=== PATIENT | female | born 1960 | race Two or more races ===

== ENCOUNTER 2018-08-13 17:05 | Emergency (ER) | payer MEDICAID ==
[~2018-08-13] VITALS: Ht 167.6 cm; Wt 90.7 kg
[2018-08-13 17:21] VITALS: BP 132/78
[2018-08-13] MEDS ORDERED: KETOROLAC TROMETHAMINE INJ 30 MG/ML VIAL ONE (17:51)
[2018-08-13] MEDS ORDERED: KETOROLAC TROMETHAMINE INJ 60 MG/2 ML VIAL IM ONE (18:00)
[2018-08-13] MEDS ORDERED: CARISOPRODOL 350 MG TABLET PO ONE (18:30)
[2018-08-13] MEDS ORDERED: HYDROCODONE/APAP 5/325MG 1 EACH TABLET PO ONE (18:30)
[2018-08-13] MEDS ORDERED: CARISOPRODOL 350 MG TABLET ONE (18:39)
[2018-08-13] MEDS ORDERED: HYDROCODONE/APAP 5/325MG 1 EACH TABLET ONE (18:39)
[2018-08-13] MEDS ORDERED: ONDANSETRON 4 MG TAB.RAPDIS SL ONE (19:00)
[2018-08-13] MEDS ORDERED: HYDROMORPHONE INJ 0.5 MG/0.5 ML SYRINGE IM ONE (19:00)
[2018-08-13] MEDS ORDERED: ONDANSETRON 4 MG TAB.RAPDIS ONE (19:08)
[2018-08-13] MEDS ORDERED: HYDROMORPHONE 1 MG/1 ML DISP.SYRIN ONE (19:08)
== END 2018-08-13 19:47 | disposition home or self-care (01) ==
LOC: ER 17:06
DX: M51.26 Other intervertebral disc displacement, lumbar region (principal); M54.41 Lumbago with sciatica, right side; K21.9 Gastro-esophageal reflux disease without esophagitis; Z98.890 Other specified postprocedural states
CPT/HCPCS: 72131; 96372; 99284; J1885; J1170; Q0162

== ENCOUNTER 2020-09-07 01:16 | Emergency (ER) | payer MEDICAID ==
[~2020-09-07] VITALS: Ht 167.6 cm; Wt 90.7 kg
--- NOTE | 2020-09-07 01:35 | NUR ---
[id number] FROM HOME C/O RIGHT KNEE RADIATING TO FOOT. PATIENT A/OX3, STABLE ON ROOM AIR, V/S WNL, RR IS EVEN AND UNLABORED. PATIENT ON MONITOR. WILL CONTINUE TO MONITOR.
[2020-09-07] MEDS ORDERED: KETOROLAC TROMETHAMINE INJ 60 MG/2 ML VIAL IM ONE (02:26)
[2020-09-07] MEDS: KETOROLAC TROMETHAMINE INJ 60 MG/2 ML VIAL IM ONE (02:42)
[2020-09-07] MEDS ORDERED: TRAM50TA2 PO (03:07)
[2020-09-07 03:27] VITALS: BP 138/89
--- NOTE | 2020-09-07 03:32 | NUR ---
Patient discharged to home in stable condition. Rx and Written and verbal after care instructions given. Patient verbalizes understanding of instruction.
== END 2020-09-07 03:33 | disposition home or self-care (01) ==
LOC: ER 01:18
DX: M79.661 Pain in right lower leg (principal); R22.41 Localized swelling, mass and lump, right lower limb; K21.9 Gastro-esophageal reflux disease without esophagitis; Z98.890 Other specified postprocedural states
CPT/HCPCS: 73590; 93971; 96372; 99284; J1885

== ENCOUNTER 2024-01-07 08:58 | Emergency (ER) | payer MEDICAID, OTHER ==
[~2024-01-07] VITALS: Ht 149.9 cm; Wt 88.5 kg
[~2024-01-07 08:58] MED LIST: TRAM50TA2 PO
[2024-01-07 09:03] VITALS: BP 151/80; TEMP 97.9; O2SAT 99
[2024-01-07] MEDS ORDERED: ERYT3.5O9 EACHEYE (09:20)
== END 2024-01-07 09:57 | disposition home or self-care (01) ==
LOC: ER 09:02
DX: H00.014 Hordeolum externum left upper eyelid (principal)

== ENCOUNTER 2024-07-04 08:12 | Emergency (ER) | payer OTHER ==
[~2024-07-04] VITALS: Ht 162.6 cm; Wt 86.2 kg
[~2024-07-04 08:12] MED LIST changes: +ERYT3.5O9 EACHEYE
[2024-07-04 08:24] VITALS: BP 156/82; TEMP 98.1
[2024-07-04] MEDS ORDERED: AMLO5TAB4 PO (08:35)
[2024-07-04 08:59] VITALS: O2SAT 97
== END 2024-07-04 09:00 | disposition home or self-care (01) ==
LOC: ER 08:15
DX: I10 Essential (primary) hypertension (principal); K21.9 Gastro-esophageal reflux disease without esophagitis; Z79.899 Other long term (current) drug therapy